=== PATIENT | female | born 1975 | race African-American/Black ===

== ENCOUNTER 2017-06-15 05:53 | Emergency (ER) | payer MEDICAID ==
[~2017-06-15] VITALS: Ht 157.5 cm; Wt 86.2 kg
[2017-06-15] MEDS ORDERED: SODIUM CHLORIDE 0.9% 1,000 ML IV ONE (09:37)
[2017-06-15] MEDS ORDERED: CLINDAMYCIN 600MG IV 50 ML IV ONE (09:45)
[2017-06-15] MEDS ORDERED: ceFAZolin 1GM/50ML 50 ML IV ONE (09:45)
[2017-06-15] MEDS ORDERED: ONDANSETRON HCL 4 MG/2 ML VIAL IV ONE (10:30)
[2017-06-15] MEDS ORDERED: HYDROmorphone HCL 2 MG/ML VL IV ONE (10:30)
[2017-06-15 12:12] VITALS: BP 103/67
[2017-06-16 11:06] LABS: Hepatitis B Surface Antibody Negative
[2017-06-16 11:17] LABS: Hepatitis B Surface Antigen Negative (Negative)
== END 2017-06-15 12:16 | disposition home or self-care (01) ==
LOC: ER 05:57
DX: S61.451A Open bite of right hand, initial encounter (principal); F17.210 Nicotine dependence, cigarettes, uncomplicated; Z91.018 Allergy to other foods; W50.3XXA Accidental bite by another person, initial encounter; Y93.89 Activity, other specified; Y99.8 Other external cause status; Y92.89 Other specified places as the place of occurrence of the external cause
CPT/HCPCS: 36415; 73140; 86703; 86706; 86803; 87340; 94761; 96365; 96366; 96367; 96375; 99285; J0690; J1170; J2405; J3490; J7030

== ENCOUNTER 2020-05-11 12:44 | Emergency (ER) | payer MEDICAID ==
[~2020-05-11] VITALS: Ht 170.2 cm; Wt 81.6 kg
[2020-05-11] MEDS ORDERED: IBUPROFEN 800 MG TAB PO ONE (14:45)
[2020-05-11 14:46] VITALS: BP 117/83
== END 2020-05-11 15:09 | disposition home or self-care (01) ==
LOC: EDBD 12:44 → ER 12:44 → EDUNIT# 12:44 → ER 15:09
DX: S01.531A Puncture wound without foreign body of lip, initial encounter (principal); S20.212A Contusion of left front wall of thorax, initial encounter; F17.210 Nicotine dependence, cigarettes, uncomplicated; Z98.51 Tubal ligation status; V43.52XA Car driver injured in collision with other type car in traffic accident, initial encounter; Y93.89 Activity, other specified; Y92.488 Other paved roadways as the place of occurrence of the external cause; Y99.8 Other external cause status
CPT/HCPCS: 71046

== ENCOUNTER 2023-02-26 21:12 | Emergency (ER) | payer MEDICAID, OTHER ==
[~2023-02-26] VITALS: Ht 157.5 cm; Wt 94.5 kg
[2023-02-26 22:59] VITALS: BP 113/71; PULSE 69; RESP 16; TEMP 98.4; O2SAT 98
[2023-02-26] MEDS ORDERED: KETOROLAC TROMETH 30 MG/ML 1ML VIAL IM ONE (23:15)
== END 2023-02-26 23:32 | disposition home or self-care (01) ==
LOC: ER 21:12
DX: S00.83XA Contusion of other part of head, initial encounter (principal); F17.210 Nicotine dependence, cigarettes, uncomplicated; W22.8XXA Striking against or struck by other objects, initial encounter; Y93.89 Activity, other specified; Y92.89 Other specified places as the place of occurrence of the external cause; Y99.0 Civilian activity done for income or pay
CPT/HCPCS: 70450; 96372; 99285; J1885